=== PATIENT | male | born 1980 | race Caucasian/White ===

== ENCOUNTER 2016-11-07 04:09 | Emergency (ER) | payer OTHER ==
[~2016-11-07] VITALS: Ht 175.3 cm; Wt 81.6 kg
[2016-11-07 04:25] VITALS: BP 150/80
[2016-11-07] MEDS ORDERED: TETRACAINE 0.5% OPHTH SOLUTION 4ML BOTTLE. OD ONE (05:00)
[2016-11-07] MEDS ORDERED: FLUORESCEIN OPHTH TEST STRIP. OD ONE (05:00)
[2016-11-07] MEDS ORDERED: ERYT1OIN6 OP (05:03)
--- NOTE | 2016-11-07 05:03 | PHYS DOC ---
Past Medical History Past Medical History: Other Additional Past Medical Histor: DERMITITIS Past Surgical History: Other Additional Past Surgical Histo: RIGHT ANKLE SURGERY, PRK Alcohol Use: Occasionally Drug Use: None Adult General Chief Complaint Chief Complaint: EYE PROBLEMS HPI HPI Patient is a 36 year old male who feels that he got something in his right eye earlier today. It is now. And somewhat painful with some tearing and irritation. No vision changes fevers chills nausea vomiting. Review of Systems Review of Systems Constitutional: Denies fever or chills [] Eyes: Denies change in visual acuity. + redness, eye pain [] Current Medications Current Medications Current Medications Medications (Trade) Dose Ordered Sig/Dulce Start Time Stop Time Status Last Admin Dose Admin Fluorescein Sodium (Ful-Aracely) 1 strip 1X ONCE 11/07/16 05:00 11/07/16 05:01 DC 11/07/16 04:40 1 STRIP Tetracaine HCl (Tetracaine) 1 drop 1X ONCE 11/07/16 05:00 11/07/16 05:01 DC 11/07/16 04:40 1 DROP Allergies Allergies Allergies Coded Allergies Type Severity Reaction Last Updated Verified No Known Drug Allergies 11/07/16 No Physical Exam Physical Exam Constitutional: Well developed, well nourished, no acute distress, non-toxic appearance. [] Eyes: PERRLA, EOMI, conjunctiva normal, no discharge. Patient with diffuse red sclera and conjunctivitis pattern. Eyelids were everted and no obvious foreign body seen on eyelids or cornea. I examined with fluorescein and there was no obvious corneal abrasion or foreign body seen. Current Patient Data Vital Signs Vital Signs Date Time Temp Pulse Resp B/P Pulse Ox O2 Delivery O2 Flow Rate FiO2 11/07/16 04:25 97.9 86 16 98 Room Air 97.9 EKG EKG [] Radiology/Procedures Radiology/Procedures [] Course & Med Decision Making Course & Med Decision Making No foreign body seen looks like a conjunctivitis so will treat with erythromycin as an outpatient and have him follow with cigarette seller later today or tomorrow. He did not want referral to our cigarette seller and [place]. Dragon Disclaimer Dragon Disclaimer This electronic medical record was generated, in whole or in part, using a voice recognition dictation system. Departure Departure Impression: Primary Impression: Conjunctivitis Disposition: HOME, SELF-CARE Condition: GOOD Referrals: NO PCP (PCP) Patient Instructions: Conjunctivitis (Viral and Bacterial) Additional Instructions: FOLLOW WITH THE [facility] ATTENDANT TODAY OR TOMORROW. Scripts Erythromycin Base (Erythromycin)3.5 Gm Oint...g.3.5 Gm OP 6XDAY 5 Days Prov:SEEMA HOANG DO 11/07/16 Problem Qualifiers Primary Impression: Conjunctivitis Conjunctivitis type: acute Acute conjunctivitis type: unspecified Laterality: right Qualified Code: H10.31 - Unspecified acute conjunctivitis, right eye SEEMA HOANG DO November 07, 2016 05:03
== END 2016-11-07 05:12 | disposition home or self-care (01) ==
LOC: ER 04:09
DX: H10.31 Unspecified acute conjunctivitis, right eye (principal)
CPT/HCPCS: 99283